=== PATIENT | male | born 1985 | race Caucasian/White ===

== ENCOUNTER 2017-03-30 20:36 | Emergency (ER) | payer OTHER ==
[~2017-03-30] VITALS: Ht 177.8 cm; Wt 75.7 kg
[~2017-03-30 20:36] MED LIST: ASPIR 8181 M1 PO; AUGMENTIN875 MG PO; BENTYL20 MG PO; FLEXERIL10 MG PO; MOTRIN600 MG PO; ULTRAM50 MG PO
[2017-03-30] MEDS ORDERED: MOTRIN800 MG PO (22:25)
[2017-03-30] MEDS ORDERED: VALIUM5 MG PO (22:25)
[2017-03-30] MEDS ORDERED: LIDODERM 5% P1 PATCH TD (22:25)
[2017-03-30 22:42] VITALS: BP 115/82
== END 2017-03-30 22:43 | disposition home or self-care (01) ==
LOC: EME 20:36
DX: S39.012A Strain of muscle, fascia and tendon of lower back, initial encounter (principal); X50.0XXA Overexertion from strenuous movement or load, initial encounter; Y99.0 Civilian activity done for income or pay; F17.200 Nicotine dependence, unspecified, uncomplicated
CPT/HCPCS: 99281; 99284